=== PATIENT | female | born 1960 | race Caucasian/White ===

== ENCOUNTER 2021-07-02 21:07 | Emergency (ER) | payer MEDICAID, MEDICARE ==
[~2021-07-02] VITALS: Ht 165.1 cm; Wt 175.0 kg
--- NOTE | 2021-07-02 21:20 | NUR ---
EKG DONE IN TRIAGE. E
[2021-07-02] MEDS ORDERED: SODIUM CHLORIDE FLUSH 10ML SYR IVF ONE (21:30)
[2021-07-02] MEDS ORDERED: LORazepam 2 MG/ML, 1ML IVPush ONE (21:30)
[2021-07-02] MEDS ORDERED: LORazepam 2 MG/ML, 1ML ONE (21:53)
[2021-07-02 22:12] LABS: ALANINE AMINOTRANSFERASE 31 U/L (12-78); ALBUMIN 2.9 g/dL (3.4-5.0); ANION GAP 6 mmol/L (5-15); CALCIUM 8.6 mg/dL (8.5-10.1); CHLORIDE 107 mmol/L (98-107); CREATININE 0.87 mg/dL (0.55-1.02)
[2021-07-02 22:16] LABS: ALKALINE PHOSPHATASE 91 U/L (45-117); BILIRUBIN,TOTAL 0.3 mg/dL (0.2-1.0); TOTAL PROTEIN 6.9 g/dL (6.4-8.2); TROPONIN I < 0.015 ng/mL (0.000-0.045)
[2021-07-02 22:18] LABS: MEAN CORPUSCULAR HEMOGLOBIN 27.5 pg (27.0-34.8); MEAN CORPUSCULAR HGB CONC 32.3 g/dL (32.4-35.8); PLATELET COUNT 363 x10^3/uL (130-400); RED BLOOD COUNT 4.17 x10^6/uL (3.82-5.3); RED CELL DISTRIBUTION WIDTH 16.5 % (9.6-15.2)
[2021-07-02 22:36] LABS: INTERNATIONAL NORMALIZED RATIO 0.93 (0.93-1.1); PROTHROMBIN TIME 9.9 Seconds (9.6-11.5)
[2021-07-02] MEDS ORDERED: MORPHINE SULFATE 4 MG/ML, 1ML ONE (22:36)
[2021-07-02 22:38] LABS: PARTIAL THROMBOPLASTIN TIME < 23 Seconds (25-31)
[2021-07-02 22:51] LABS: BAND#(MANUAL) 0.13 x10^3/uL; BANDS%(MANUAL) 1 % (0-7); LYMPHS% (MANUAL) 20 % (22-44); METAMYELOCYTES# (MANUAL) 0.13 x10^3/uL (0-0); METAMYELOCYTES% (MANUAL) 1 % (0-1); MONOS#(MANUAL) 0.65 x10^3/uL (0.3-2.7); MONOS% (MANUAL) 5 % (2-9); MYELOCYTES# (MANUAL) 0.13 x10^3/uL (0-0); MYELOCYTES% (MANUAL) 1 % (0-0); SEG#(MANUAL) 9.36 x10^3/uL (1.8-6.8); SEGS% (MANUAL) 72 % (42-75)
[2021-07-02 22:52] LABS: ANISOCYTOSIS 1+; POLYCHROMASIA 1+
[2021-07-02 22:55] LABS: <PLATELET ESTIMATE> ADEQUATE; <PLT MORPHOLOGY> NORMAL PLT MORPH
[2021-07-02] MEDS ORDERED: MORPHINE SULFATE 4 MG/ML, 1ML IVPush PRN (23:00)
[2021-07-02] MEDS ORDERED: FUROSEMIDE 40 MG/4 ML ONE (23:22)
[2021-07-02 23:30] VITALS: BP 139/97
[2021-07-02] MEDS ORDERED: FUROSEMIDE 40 MG/4 ML IV ONE (23:30)
== END 2021-07-02 23:58 | disposition home or self-care (01) ==
LOC: ED 21:59
DX: R06.00 Dyspnea, unspecified (principal); I50.22 Chronic systolic (congestive) heart failure; J18.9 Pneumonia, unspecified organism; R60.0 Localized edema; R94.31 Abnormal electrocardiogram [ECG] [EKG]; J44.9 Chronic obstructive pulmonary disease, unspecified; Z87.891 Personal history of nicotine dependence
CPT/HCPCS: 36415; 71045; 80053; 83880; 84484; 85025; 85610; 85730; 93005; 96374; 96375; 99285; J1940; J2060; J2270

== ENCOUNTER 2021-07-12 19:36 | Emergency (ER) | payer MEDICARE ==
[~2021-07-12] VITALS: Ht 165.1 cm; Wt 155.0 kg
--- NOTE | 2021-07-12 20:07 | NUR ---
TO ROOM FROM LOBBY.
[2021-07-12 20:34] LABS: BASOPHILS % (AUTO) 1 % (0-1); EOSINOPHILS % (AUTO) 1 % (1-7); LYMPHOCYTES % (AUTO) 26 % (22-44); MEAN CORPUSCULAR HEMOGLOBIN 27.9 pg (27.0-34.8); MEAN CORPUSCULAR HGB CONC 32.6 g/dL (32.4-35.8); MEAN PLATELET VOLUME 7.5 fL (7.4-10.4); MONOCYTES % (AUTO) 9 % (2-9); NEUTROPHILS % (AUTO) 63 % (42-75); PLATELET COUNT 323 x10^3/uL (130-400); RED BLOOD COUNT 4.07 x10^6/uL (3.82-5.3); RED CELL DISTRIBUTION WIDTH 16.8 % (9.6-15.2)
[2021-07-12 20:44] LABS: ALANINE AMINOTRANSFERASE 29 U/L (12-78); ALBUMIN 2.9 g/dL (3.4-5.0); ANION GAP 5 mmol/L (5-15); CALCIUM 8.8 mg/dL (8.5-10.1); CHLORIDE 108 mmol/L (98-107); CREATININE 0.74 mg/dL (0.55-1.02)
[2021-07-12 20:48] LABS: ALKALINE PHOSPHATASE 82 U/L (45-117); BILIRUBIN,TOTAL 0.4 mg/dL (0.2-1.0); TOTAL PROTEIN 6.6 g/dL (6.4-8.2); TROPONIN I < 0.015 ng/mL (0.000-0.045)
--- NOTE | 2021-07-12 20:57 | NUR ---
PT WHEELED BACK FROM [address]. STATES SHES BEEN HAVING INCREASED SOB X 1WEEK. OVER LAST MONTH SHES HAD A 10# GAIN IN "WATER WEIGHT". PTS WATER PILL INCREASED FROM 20MG, TO 40MG JUST THIS WEEK. PT ASSITED TO SAUD, PLACED ON ALL MONITORS. PT STATES SHE WEARS 3L NC ALL THE TIME. CPAP AT NIGHT. PIV ESTB C LABS DRAWN. FLUSHED C 10CC NS. CXR COMPLETED. FAMILY AT BS. CALL LIGHT INREACH. PT HAS HAD 1ST PFIZER VAX, UNABLE TO GET 2ND D/T RECENT ADMISSION & [facility] BEING OUT OF STOCK. WILL CTM.
[2021-07-12] MEDS ORDERED: MORPHINE SULFATE 4 MG/ML, 1ML ONE (22:24)
[2021-07-12] MEDS ORDERED: MORPHINE SULFATE 4 MG/ML, 1ML IVPush PRN (22:30)
--- NOTE | 2021-07-12 22:49 | NUR ---
PT BECOMING IRRATE C THIS RN, STATES DOC DIDNT EVEN DO ANYTHING FOR MY BREATHING. DENIES ANY RELIEF FROM MORPHINE. PIV DC. PT RIPPED OFF ALL MONITOR LEADS & "JUST UNDO ME..IM LEAVING..ILL JUST BE BACK IN THE HOSPITAL AGAIN". ATTEMPTING TO EXPLAIN PTS TEST RESULTS THAT ABX ARE NOT NEEDED D/T NOT HAVING PNA. PT CONTINUES TO THROW HERSELF ABOUT TO GET DRESS. PTS AT THIS TIME HAS GONE OUT TO GET THE CAR & PTS O2 TANK. WHEELCHAIR INSIDE ROOM.
[2021-07-12 22:52] VITALS: BP 119/85
--- NOTE | 2021-07-12 23:09 | NUR ---
PTS NEVER RETURNED WITH O2 TANK. WHILE TRYING TO FIND TANK TO WHEEL PT TO CHECKOUT, SHE WALKED OUT ON HER OWN S O2, REFUSING TO STOP AT CHECKOUT.
== END 2021-07-12 23:10 | disposition home or self-care (01) ==
LOC: ED 20:00
DX: I50.22 Chronic systolic (congestive) heart failure (principal); R07.89 Other chest pain; R06.00 Dyspnea, unspecified; J44.9 Chronic obstructive pulmonary disease, unspecified; R94.31 Abnormal electrocardiogram [ECG] [EKG]; E66.2 Morbid (severe) obesity with alveolar hypoventilation; Z68.43 Body mass index [BMI] 50.0-59.9, adult; Z87.891 Personal history of nicotine dependence; Z88.6 Allergy status to analgesic agent
CPT/HCPCS: 36415; 71045; 80053; 83880; 84484; 85025; 93005; 96374; 99285; J2270